=== PATIENT | male | born 2000 | race African-American/Black ===

== ENCOUNTER 2020-06-14 15:58 | Emergency (ER) | payer MEDICAID ==
[~2020-06-14] VITALS: Ht 172.7 cm; Wt 50.0 kg
[2020-06-14 17:23] LABS: CLARITY URINE CLOUDY (CLEAR); COLOR URINE DARK YELLOW (YELLOW); KETONES URINE 2+ (NEGATIVE); LEUKOCYTE ESTERASE URINE NEGATIVE (NEGATIVE); NITRITE URINE NEGATIVE (NEGATIVE); OCCULT BLOOD URINE NEGATIVE (NEGATIVE); PH URINE 5.5 (4.5-8.0); PROTEIN URINE 1+ (NEGATIVE)
[2020-06-14 17:40] LABS: *AMPHETAMINES SCREEN URINE NEGATIVE (NEGATIVE); *BARBITURATES SCREEN URINE NEGATIVE (NEGATIVE); *BENZODIAZEPINES SCREEN URINE NEGATIVE (NEGATIVE); *COCAINE SCREEN URINE NEGATIVE (NEGATIVE); CANNABINOID URINE SCREEN PRESUMTIVE POSITIVE (NEGATIVE); METHADONE URINE SCREEN NEGATIVE (NEGATIVE); OPIATES URINE SCREEN NEGATIVE (NEGATIVE); PHENCYCLIDINE URINE SCREEN NEGATIVE (NEGATIVE)
[2020-06-14 20:17] LABS: EOSINOPHILS % 0.2 % (0.0-5.0); HEMATOCRIT. 41.7 % (42.0-52.0); HEMOGLOBIN. 14.2 g/dL (14.0-18.0); LYMPHOCYTES % 20.3 % (20.0-50.0); MEAN CORPUSCULAR HEMOGLOBIN 26.4 pg (28.0-32.0); MEAN CORPUSCULAR VOLUME 77.8 fL (80.0-94.0); MEAN PLATELET VOLUME 7.5 fl (7.4-10.4); MONOCYTES % 6.8 % (2.0-8.0); NEUTROPHILS % 71.7 % (40.0-76.0); PLATELET 346 x1000/uL (130-400); RED BLOOD CELL COUNT 5.36 mill/uL (4.7-6.1); RED CELL DISTRIBUTION WIDTH 16.5 % (11.6-14.6)
[2020-06-14 20:22] LABS: CHLORIDE 107 mEq/L (98-107)
[2020-06-14 20:27] LABS: ETHANOL BLOOD < 10 mg/dL
[2020-06-15] MEDS ORDERED: QUETIAPINE FUMARATE 50MG TABLET PO STA (19:58)
[2020-06-16 14:02] VITALS: BP 109/67
== END 2020-06-16 14:05 | disposition home or self-care (01) ==
LOC: ER 15:58
DX: F23 Brief psychotic disorder (principal); F32.9 Major depressive disorder, single episode, unspecified; F11.10 Opioid abuse, uncomplicated; F17.210 Nicotine dependence, cigarettes, uncomplicated; Z75.1 Person awaiting admission to adequate facility elsewhere; Z86.19 Personal history of other infectious and parasitic diseases; Z71.6 Tobacco abuse counseling; Z20.822 Contact with and (suspected) exposure to COVID-19
CPT/HCPCS: 36415; 80053; 80305; 80307; 80320; 80329; 81003; 85025; 87426; 93005; 99285; 99406; G0480